=== PATIENT | female | born 1990 | race Caucasian/White ===

== ENCOUNTER 2016-11-29 04:35 | Emergency (ER) | payer OTHER ==
[~2016-11-29 04:35] MED LIST: AMOXICILLIN875 MG PO; BACTRIM DS TABL1 TA1 PO; BENTYL10 MG PO; CLEOCIN; CORTISPORIN-TC10 M1 AD; IBUPROFEN800 MG PO; IRON SUPPLEMENT1 TAB; KEFLEX500 MG PO; LORCET PO; NAPROSYN-EC500 MG PO; NO MEDICATIONS; NORCO 5/325 TAB1 TAB PO; PHENERGAN25 M1 PO; PRENATAL1 TA1; ULTRAM PO; VOLTAREN75 MG PO; ZOFRAN ODT4 MG PO
[2016-11-29 05:01] LABS: INFLUENZA A NEG (NEG); INFLUENZA B NEG (NEG)
== END 2016-11-29 05:22 | disposition home or self-care (01) ==
LOC: SED 04:35
PROVIDERS: Emergency Medicine
DX: J06.9 Acute upper respiratory infection, unspecified (principal); F17.200 Nicotine dependence, unspecified, uncomplicated
CPT/HCPCS: 87651; 87804; 99282; 99283

== ENCOUNTER 2017-03-18 00:56 | Emergency (ER) | payer OTHER ==
[~2017-03-18] VITALS: Ht 165.1 cm; Wt 93.0 kg
--- NOTE | ~2017-03-18 | CT4 ---
[facility] A Service of [facility] RADIOLOGY TEXT RESULTS PATIENT: LIBBY DIANE LOCATION: SED : [birth year] UNIT #: [id number] AGE: [address]: Efrain Adam MD SEX: F ORDER DR: [id number] [place] [id number] E MR#: [id number] Acc #: [id number] NAME: LIBBY DIANE : 1990 SEX: F STUDY DATE/TIME: 03/18/2017 2:20 UNIT: SED ROOM: STUDY DESCRIPTION: CT Abd and Pelv Wo Cont Attending Physician: Efrain Adam M.D. Ordering Physician: Efrain Adam M.D. Primary Care Physician: No Primary Care Physician MEDICAL IMAGING REPORT This report is preliminary unless electronic signature is present. EXAM CT abdomen and pelvis without contrast HISTORY Right flank pain right lower quadrant pain for [address] abdomen and pelvis was performed without contrast. This CT exam was performed with one or more of the following radiation dose reduction techniques: automatic control, adjustment of mA and/or kV according to patient size, and iterative reconstruction. CT ABDOMEN: Moderately severe right hydronephrosis with mild right ureteral dilatation and minimal right perinephric and periureteral stranding. The liver, gallbladder, spleen, pancreas, left kidney, and adrenal glands are normal. Normal caliber abdominal aorta. No ascites or adenopathy. CT PELVIS: 3 mm obstructing stone at the right ureterovesical junction with mild dilatation of the right ureter down to the UVJ. There is a tiny umbilical hernia containing fat. Normal appendix. No free fluid in the pelvis. The uterus and adnexa are unremarkable. IMPRESSION 1. 3 mm obstructing stone at the right ureterovesical junction causing moderate right hydronephrosis. 2. Normal appendix. Dictated by... Ivan Frederick M.D. [facility] A Service of [facility] RADIOLOGY TEXT RESULTS PATIENT: LIBBY DIANE LOCATION: SED : [birth year] UNIT #: [id number] AGE: [address]: Efrain Adam MD SEX: F ORDER DR: THIS IS AN ELECTRONICALLY VERIFIED REPORT Ivan Giorgi Frederick M.D. at 03/19/2017 6:31 AM MICHAEL/charlotte TD: 03/19/2017 04:16 JOB #: [id number] MEDICAL IMAGING REPORT Page 1 of 1
[2017-03-18 01:22] LABS: URINE SOURCE CLEAN CATCH
[2017-03-18 01:25] LABS: URINE APPEARANCE CLOUDY; URINE BILIRUBIN NEG (NEG); URINE BLOOD 3+ (NEG); URINE COLOR DK YELLOW; URINE GLUCOSE NEG (NORM); URINE KETONE NEG (NEG); URINE LEUKOCYTE ESTERASE TRACE (NEG); URINE NITRATE NEG (NEG); URINE PROTEIN TRACE (NEG); URINE SPECIFIC GRAVITY >=1.030 (1.003-1.035); URINE UROBILINOGEN 0.2 MG/DL (NORM)
[2017-03-18 01:26] LABS: MICRO INDICATED? YES
[2017-03-18 01:34] LABS: URINE BACTERIA 1+ (NEG); URINE RBC 200-300 /[HPF] (0-2)
[2017-03-18 01:35] LABS: URINE TRANSITIONAL EPI CELLS MODERATE /[HPF]
[2017-03-18 01:36] LABS: URINE SQUAMOUS EPITHELIAL CELL FEW /[HPF]
[2017-03-18 01:56] LABS: BASOPHIL% 0.3 % (0-2.5); EOSINOPHIL# 0.2 X10e3 (0-0.7); EOSINOPHIL% 1.5 % (0.0-7.0); HEMATOCRIT 38.8 % (35.0-45.0); HEMOGLOBIN 13.4 gm/dL (12.0-16.0); LYMPHOCYTE# 3.2 X10e3 (1.0-3.5); LYMPHOCYTE% 21.8 % (17.0-45.0); MEAN CELL VOLUME 86.5 FL (83-96); MEAN CORPUSCULAR HEMOGLOBIN 29.9 PG (28-34); MEAN CORPUSCULAR HGB CONC 34.6 g/dL (30-36); MEAN PLATELET VOLUME 8.2 FL (6.5-11.5); MONOCYTE# 1.1 X10e3 (0-1.0); MONOCYTE% 7.8 % (3.0-12.0); NEUTROPHIL# 9.9 X10e3 (1.5-7.1); NEUTROPHIL% 68.6 % (40-75); PLATELET COUNT 297 X10e3 (140-420); RED BLOOD COUNT 4.49 X10e (3.90-5.30); RED CELL DISTRIBUTION WIDTH 13.4 % (11.0-15.5); WHITE BLOOD COUNT 14.5 X10e3 (4.0-10.5)
[2017-03-18 01:58] LABS: DIFF IND NO
[2017-03-18 02:04] LABS: BUN/CREATININE RATIO 16.25; CALCIUM SERUM 9.2 mg/dL (8.4-10.2); CREATININE SERUM 0.8 mg/dL (0.6-1.4); GLOM FILT RATE Estimated 103.3 mL/min (>60)
== END 2017-03-18 07:36 | disposition home or self-care (01) ==
LOC: SED 00:56
PROVIDERS: Emergency Medicine
DX: N13.2 Hydronephrosis with renal and ureteral calculous obstruction (principal); F17.210 Nicotine dependence, cigarettes, uncomplicated
CPT/HCPCS: 36415; 74176; 80048; 81003; 84703; 85025; 87086; 87088; 96361; 96374; 96375; 99284; J1170; J1885; J2270; J2405